=== PATIENT | male | born 1985 | race Caucasian/White ===

== ENCOUNTER 2023-05-06 15:51 | Inpatient (IN) | payer MEDICAID ==
[~2023-05-06] VITALS: Ht 172.7 cm; Wt 112.0 kg
[2023-05-06] MEDS: POTASSIUM CHLORIDE INJ 40 MEQ in DEXT 5%/0.9% NACL 1,000 ML IV SCH ×2 (10:42→20:54)
[2023-05-06] MEDS ORDERED: SODIUM CHLORIDE 0.9% 1,000 ML IV ONE (17:30)
[2023-05-06] MEDS ORDERED: LEVETIRACETAM 500MG PREMIX 100 ML IV ONE (17:45)
[2023-05-06] MEDS ORDERED: LORAZEPAM 2MG/ML CPJ IV ONE (17:45)
[2023-05-06 18:01] LABS: HEMATOCRIT. 44.5 % (42.0-52.0); HEMOGLOBIN. 14.5 g/dL (14.0-18.0); MEAN CORPUSCULAR HGB CONC 32.7 g/dL (31.0-37.0); MEAN CORPUSCULAR VOLUME 94.9 fL (80.0-94.0); MEAN PLATELET VOLUME 9.6 fl (7.4-10.4); PLATELET 167 x1000/uL (130-400); RED BLOOD CELL COUNT 4.69 mill/uL (4.7-6.1); RED CELL DISTRIBUTION WIDTH 14.6 % (11.6-14.6); WHITE BLOOD COUNT 10.3 x1000/uL (4.5-11.0)
[2023-05-06 18:02] LABS: CHLORIDE 96 mEq/L (98-107); DIFFERENTIAL COMMENT 1; INDEX HEMOLYSI 1 (1-3); INDEX ICTERIC 2 (1-4); INDEX LIPEMIC 1 (1-3); SODIUM 134 mEq/L (136-145)
[2023-05-06 18:09] LABS: GLUCOSE 150 mg/dL (70-105)
[2023-05-06 18:10] LABS: ALANINE AMINOTRANSFERASE 492 IU/L (13-61); ALBUMIN 4.5 g/dL (3.4-5.0); ASPARTATE AMINOTRANSFERASE 812 IU/L (15-37); BILIRUBIN TOTAL 2.2 mg/dL (0.1-1.0); CALCIUM 8.7 mg/dL (8.5-10.1); CREATININE 0.9 mg/dL (0.6-1.3); PROTEIN TOTAL 8.4 g/dL (6.0-8.3); UREA NITROGEN BLOOD 11 mg/dL (7-21)
[2023-05-06 18:17] LABS: CARBON DIOXIDE 8 mEq/L (21-32)
[2023-05-06 18:24] LABS: LACTIC ACID 21.3 mmol/L (0.4-2.0)
[2023-05-06] MEDS ORDERED: POTASSIUM CHLORIDE INJ 40 MEQ in DEXT 5% WATER 500 ML IV ONE (18:30)
[2023-05-06] MEDS ORDERED: MAGNESIUM 2 G PREMIX 50 ML IV ONE (18:30)
[2023-05-06 18:57] LABS: PLATELET ESTIMATE NORMAL
[2023-05-06] MEDS ORDERED: DIPHENHYDRAMINE 50MG/ML VIAL IV PRN (23:15)
[2023-05-06] MEDS ORDERED: LEVETIRACETAM 500 MG in SODIUM CHLORIDE 0.9% 100 ML IV SCH (23:15)
[2023-05-06] MEDS ORDERED: ACETAMINOPHEN 325MG TABLET PO PRN ×2 (23:15)
[2023-05-06] MEDS ORDERED: ONDANSETRON HCL 4MG/2ML INJ IV PRN (23:15)
[2023-05-07] VITALS (7 sets, daily range): BP systolic 139–170; BP diastolic 93–117; PULSE 95–112; RESP 16–22; TEMP 97.3–99.7
[2023-05-07] MEDS ORDERED: MVI, ADULT NO.1 10 ML, FOLIC ACID 1 MG, THIAMINE HCL 100 MG in SODIUM CHLORIDE 0.9% 1,0... IV SCH ×4 (01:00)
[2023-05-07] MEDS: POTASSIUM CHLORIDE INJ 40 MEQ in DEXT 5%/0.9% NACL 1,000 ML IV SCH ×2 (02:43→06:56)
[2023-05-07] MEDS: LORAZEPAM 2MG/ML CPJ IV PRN ×2 (04:42→14:31)
[2023-05-07] MEDS: LEVETIRACETAM 500MG PREMIX 100 ML IV SCH ×2 (06:15→17:12)
[2023-05-07 08:07] LABS: BASOPHILS % 0.4 % (0.0-2.0); HEMATOCRIT. 38.2 % (42.0-52.0); HEMOGLOBIN. 12.8 g/dL (14.0-18.0); LYMPHOCYTES % 10.9 % (20.0-50.0); MEAN CORPUSCULAR HEMOGLOBIN 30.8 pg (28.0-32.0); MEAN CORPUSCULAR HGB CONC 33.5 g/dL (31.0-37.0); MEAN PLATELET VOLUME 9.9 fl (7.4-10.4); MONOCYTES % 10.6 % (2.0-8.0); NEUTROPHILS % 78.1 % (40.0-76.0); PLATELET 129 x1000/uL (130-400); RED BLOOD CELL COUNT 4.16 mill/uL (4.7-6.1); RED CELL DISTRIBUTION WIDTH 14.2 % (11.6-14.6); WHITE BLOOD COUNT 8.7 x1000/uL (4.5-11.0)
[2023-05-07 08:11] LABS: INDEX HEMOLYSI 1 (1-3); INDEX ICTERIC 2 (1-4); INDEX LIPEMIC 1 (1-3)
[2023-05-07 08:20] LABS: ALANINE AMINOTRANSFERASE 424 IU/L (13-61); ALBUMIN 3.6 g/dL (3.4-5.0); ASPARTATE AMINOTRANSFERASE 827 IU/L (15-37); BILIRUBIN TOTAL 4.3 mg/dL (0.1-1.0); CALCIUM 8.3 mg/dL (8.5-10.1); CARBON DIOXIDE 23 mEq/L (21-32); CHLORIDE 101 mEq/L (98-107); CREATININE 0.6 mg/dL (0.6-1.3); GLUCOSE 113 mg/dL (70-105); PHOSPHORUS 1.3 mg/dL (2.5-4.9); POTASSIUM 3.3 mEq/L (3.5-5.1); SODIUM 134 mEq/L (136-145); UREA NITROGEN BLOOD 10 mg/dL (7-21)
[2023-05-07] MEDS ORDERED: POTASSIUM CHLORIDE 20MEQ TABLET SR PO NR (11:00)
[2023-05-07] MEDS ORDERED: NALOXONE HCL 0.4MG/ML VIAL IV PRN (12:00)
[2023-05-07] MEDS: HYDROCODONE/ACETAMINOPHEN 10/325MG TABLET PO PRN (12:21)
[2023-05-07] MEDS ORDERED: POTASSIUM PHOS,M-BASIC-D-BASIC 30 MMOL in DEXT 5% WATER 500 ML IV ONE (13:00)
[2023-05-07 13:34] LABS: HEPATITIS B SURFACE ANTIGEN NEGATIVE
[2023-05-07 14:02] LABS: HEPATITIS C VIR.AB 0.14 INDEXVAL (0.00-0.80)
[2023-05-07 14:41] LABS: INDEX HEMOLYSI 2 (1-3)
[2023-05-07 15:00] LABS: CREATINE KINASE 3875 IU/L (39-308)
[2023-05-07] MEDS ORDERED: LORAZEPAM 2MG/ML CPJ IV PRN (18:00)
[2023-05-07] MEDS ORDERED: LORAZEPAM 2MG/ML CPJ IM NR (19:15)
[2023-05-07] MEDS ORDERED: DIPHENHYDRAMINE 50MG/ML VIAL IM NR (19:15)
[2023-05-07] MEDS ORDERED: HALOPERIDOL 5MG TABLET PO NR (19:15)
[2023-05-07] MEDS: HALOPERIDOL LACTATE 5MG/ML VIAL IM NR ×2 (19:28→20:13)
[2023-05-07] MEDS ORDERED: HALOPERIDOL 5MG TABLET PO ONE (19:30)
[2023-05-07] MEDS ORDERED: HALOPERIDOL LACTATE 5MG/ML VIAL IM PRN (20:15)
[2023-05-07] MEDS ORDERED: CHLORDIAZEPOXIDE 25MG CAPSULE PO NR (20:15)
[2023-05-07] MEDS: CHLORDIAZEPOXIDE 25MG CAPSULE PO SCH (20:39)
[2023-05-07] MEDS: FOLIC ACID 1 MG, THIAMINE HCL 100 MG, MVI, ADULT NO.1 10 ML in DEXTROSE 5% WATER 1,000 ML IV NR ×4 (21:03)
[2023-05-08] VITALS: BP 158/74; PULSE 103; RESP 18; TEMP 97.1
[2023-05-08] MEDS: POTASSIUM CHLORIDE INJ 40 MEQ in DEXT 5%/0.9% NACL 1,000 ML IV SCH ×2 (03:14→03:30)
[2023-05-08 04:00] VITALS: BP 145/65; PULSE 115; RESP 20; TEMP 96.8
[2023-05-08] MEDS: LEVETIRACETAM 500MG PREMIX 100 ML IV SCH ×2 (05:29→17:18)
[2023-05-08] MEDS: CHLORDIAZEPOXIDE 25MG CAPSULE PO SCH ×3 (05:30→21:54)
[2023-05-08] MEDS ORDERED: LIDOCAINE HCL 1% 20ML VIAL (Pyxis) INJ ONE (06:33)
[2023-05-08] MEDS ORDERED: POLYMYXIN B SULFATE 500000 UNITS/VIAL ONE (06:33)
[2023-05-08] MEDS ORDERED: BACITRACIN 15GM TUBE TOP ONE (06:33)
[2023-05-08] MEDS ORDERED: VANCOMYCIN HCL 1 GM/VIAL ONE (06:33)
[2023-05-08] MEDS ORDERED: SKIN ADHESIVE 0.7 GM EA TOP ONE (06:33)
[2023-05-08] MEDS ORDERED: BUPIVACAINE HCL/PF 0.5% (5MG/ML) 10ML ONE (06:34)
[2023-05-08] MEDS ORDERED: PROPOFOL 200MG/20ML VIAL IV ONE (07:33)
[2023-05-08] MEDS ORDERED: FENTANYL CITRATE/PF 50MCG/ML 2ML VIAL ONE ×3 (07:33)
[2023-05-08] MEDS ORDERED: MIDAZOLAM HCL 2 MG/2 ML VIAL ONE ×3 (07:50→07:51)
[2023-05-08 08:24] LABS: CHLORIDE 106 mEq/L (98-107); INDEX HEMOLYSI 2 (1-3); INDEX ICTERIC 3 (1-4); INDEX LIPEMIC 1 (1-3); POTASSIUM 4.3 mEq/L (3.5-5.1); SODIUM 134 mEq/L (136-145)
[2023-05-08 08:38] LABS: ALANINE AMINOTRANSFERASE 403 IU/L (13-61); ALBUMIN 3.7 g/dL (3.4-5.0); ASPARTATE AMINOTRANSFERASE 706 IU/L (15-37); BILIRUBIN TOTAL 5.3 mg/dL (0.1-1.0); CALCIUM 9.2 mg/dL (8.5-10.1); CARBON DIOXIDE 16 mEq/L (21-32); CREATININE 0.6 mg/dL (0.6-1.3); GLUCOSE 110 mg/dL (70-105); PROTEIN TOTAL 7.4 g/dL (6.0-8.3); UREA NITROGEN BLOOD 8 mg/dL (7-21)
[2023-05-08 08:58] LABS: PHOSPHORUS 0.9 mg/dL (2.5-4.9)
[2023-05-08] MEDS ORDERED: ONDANSETRON HCL 4MG/2ML INJ IV PRN (09:00)
[2023-05-08] MEDS ORDERED: HYDROMORPHONE HCL/PF 2MG/ML CPJ IV PRN (09:00)
[2023-05-08] MEDS ORDERED: LABETALOL 5MG/ML SYR 20 MG/4 ML SYRINGE IV PRN (09:00)
[2023-05-08] MEDS: THIAMINE HCL 100MG TABLET PO SCH (09:00)
[2023-05-08] MEDS ORDERED: MEPERIDINE HCL/PF 25MG/ML CPJ IV PRN (09:00)
[2023-05-08 09:12] LABS: INDEX HEMOLYSI 1 (1-3)
[2023-05-08 09:13] LABS: AMYLASE 62 IU/L (25-115); ETHANOL BLOOD < 10 mg/dL (-10)
[2023-05-08 12:00] VITALS: BP 131/76; PULSE 86; RESP 20; TEMP 98
[2023-05-08] MEDS ORDERED: POTASSIUM PHOS,M-BASIC-D-BASIC 30 MMOL in DEXT 5% WATER 500 ML IV SCH (12:00)
[2023-05-08] MEDS ORDERED: MAGNESIUM 2 G PREMIX 50 ML IV SCH (12:00)
[2023-05-08 16:00] VITALS: BP_SYST 124; PULSE 116; RESP 22; TEMP 97.6
[2023-05-08] MEDS: FOLIC ACID 1 MG, THIAMINE HCL 100 MG, MVI, ADULT NO.1 10 ML in DEXTROSE 5% WATER 1,000 ML IV NR ×4 (17:32)
[2023-05-08 20:00] VITALS: BP 132/81; PULSE 129; RESP 18; TEMP 97
[2023-05-09] VITALS: BP 128/60; PULSE 89; RESP 18; TEMP 98
[2023-05-09 04:00] VITALS: BP 111/52; PULSE 107; RESP 18; TEMP 98.8
[2023-05-09] MEDS: LEVETIRACETAM 500MG PREMIX 100 ML IV SCH (05:15)
[2023-05-09] MEDS: CHLORDIAZEPOXIDE 25MG CAPSULE PO SCH ×3 (05:42→21:45)
[2023-05-09 06:58] LABS: CALCIUM 8.2 mg/dL (8.5-10.1); INDEX HEMOLYSI 1 (1-3); INDEX ICTERIC 2 (1-4); INDEX LIPEMIC 1 (1-3)
[2023-05-09 07:02] LABS: CARBON DIOXIDE 21 mEq/L (21-32); CHLORIDE 102 mEq/L (98-107); CREATININE 0.6 mg/dL (0.6-1.3); GLUCOSE 105 mg/dL (70-105); PHOSPHORUS 2.1 mg/dL (2.5-4.9); POTASSIUM 3.1 mEq/L (3.5-5.1); SODIUM 129 mEq/L (136-145); UREA NITROGEN BLOOD 9 mg/dL (7-21)
[2023-05-09 08:00] VITALS: BP 108/76; PULSE 104; RESP 18; TEMP 98
[2023-05-09] MEDS: THIAMINE HCL 100MG TABLET PO SCH (10:12)
[2023-05-09] MEDS: HYDROCODONE/ACETAMINOPHEN 10/325MG TABLET PO PRN (10:18)
[2023-05-09] MEDS ORDERED: POTASSIUM CHLORIDE 20MEQ TABLET SR PO SCH (10:30)
[2023-05-09] MEDS ORDERED: POTASSIUM PHOS,M-BASIC-D-BASIC 20 MMOL in DEXT 5% WATER 243.3333 ML IV NR (11:30)
[2023-05-09] MEDS: POTASSIUM CHLORIDE 20MEQ TABLET SR PO SCH ×2 (14:35→17:00)
[2023-05-09 17:44] VITALS: BP 111/80; PULSE 106; RESP 17; TEMP 98.1
[2023-05-09 20:00] VITALS: BP 126/81; PULSE 113; RESP 20; TEMP 99.1
[2023-05-09] MEDS: LEVETIRACETAM 500MG TABLET PO SCH (21:45)
[2023-05-10] VITALS: BP 145/87; PULSE 101; RESP 20; TEMP 98.9
[2023-05-10 04:00] VITALS: BP 112/69; PULSE 104; RESP 20; TEMP 96.4
[2023-05-10 07:04] LABS: HEMATOCRIT. 39.5 % (42.0-52.0); HEMOGLOBIN. 13.4 g/dL (14.0-18.0); MEAN CORPUSCULAR HEMOGLOBIN 31.2 pg (28.0-32.0); MEAN CORPUSCULAR HGB CONC 33.8 g/dL (31.0-37.0); MEAN CORPUSCULAR VOLUME 92.2 fL (80.0-94.0); MEAN PLATELET VOLUME 9.9 fl (7.4-10.4); PLATELET 251 x1000/uL (130-400); RED BLOOD CELL COUNT 4.29 mill/uL (4.7-6.1); RED CELL DISTRIBUTION WIDTH 14.1 % (11.6-14.6); WHITE BLOOD COUNT 10.5 x1000/uL (4.5-11.0)
[2023-05-10 07:09] LABS: DIFFERENTIAL COMMENT 1
[2023-05-10 08:00] VITALS: BP 112/78; PULSE 103; RESP 20; TEMP 98.5
[2023-05-10 08:08] LABS: CHLORIDE 103 mEq/L (98-107); INDEX HEMOLYSI 2 (1-3); INDEX ICTERIC 2 (1-4); INDEX LIPEMIC 1 (1-3); POTASSIUM 4.2 mEq/L (3.5-5.1); SODIUM 133 mEq/L (136-145)
[2023-05-10 08:19] LABS: ALANINE AMINOTRANSFERASE 261 IU/L (13-61); ALBUMIN 3.1 g/dL (3.4-5.0); ASPARTATE AMINOTRANSFERASE 369 IU/L (15-37); CALCIUM 9.1 mg/dL (8.5-10.1); CARBON DIOXIDE 20 mEq/L (21-32); CREATININE 0.7 mg/dL (0.6-1.3); GLUCOSE 109 mg/dL (70-105); UREA NITROGEN BLOOD 12 mg/dL (7-21)
[2023-05-10] MEDS: THIAMINE HCL 100MG TABLET PO SCH (08:30)
[2023-05-10] MEDS: LEVETIRACETAM 500MG TABLET PO SCH (08:30)
[2023-05-10 12:00] VITALS: BP 117/82; PULSE 108; RESP 20; TEMP 98.1
[2023-05-10 13:07] LABS: AMPHETAMINE SCREEN Negative ng/mL (Cutoff:50); BARBITURATE SCREEN Negative ug/mL (Cutoff:0.1); CANNABINOID SCREEN Negative ng/mL (Cutoff:5); OPIATES SCREEN Negative ng/mL (Cutoff:5); OXYCODONE SCREEN Negative ng/mL (Cutoff:5); PHENCYCLIDINE SCREEN Negative ng/mL (Cutoff:8)
[2023-05-10 14:46] VITALS: BP 20/117; PULSE 98; TEMP 98.1; O2SAT 82
[2023-05-10] MEDS: CHLORDIAZEPOXIDE 25MG CAPSULE PO SCH (14:55)
[2023-05-10 18:15] LABS: PLATELET ESTIMATE NORMAL
== END 2023-05-10 15:00 | disposition home or self-care (01) | DRG 315 ==
LOC: ER 15:51 → 8WST 20:47 → EDBEDREQTM 20:51 → EDBEDREQ 20:51 → ENRESERV 22:28 → CANRESERV 23:08 → 6EST 05-09 15:22
PROVIDERS: ADMIT Internal Medicine; ATTEND Internal Medicine
PROC: 0PSD34Z Reposition Left Humeral Head with Internal Fixation Device, Percutaneous Approach (ICD-10-PCS; 2023-05-09)
PROC: 4A10X4Z Monitoring of Central Nervous Electrical Activity, External Approach (ICD-10-PCS; principal; 2023-05-10)
DX: S42.292A Other displaced fracture of upper end of left humerus, initial encounter for closed fracture (principal); G93.41 Metabolic encephalopathy; F10.231 Alcohol dependence with withdrawal delirium; E87.20 Acidosis, unspecified; M62.82 Rhabdomyolysis; E83.39 Other disorders of phosphorus metabolism; F05 Delirium due to known physiological condition; G40.409 Other generalized epilepsy and epileptic syndromes, not intractable, without status epilepticus; S43.025A Posterior dislocation of left humerus, initial encounter; R74.01 Elevation of levels of liver transaminase levels; Z20.822 Contact with and (suspected) exposure to COVID-19; E87.6 Hypokalemia; S01.512A Laceration without foreign body of oral cavity, initial encounter; E83.42 Hypomagnesemia; W19.XXXA Unspecified fall, initial encounter; F90.9 Attention-deficit hyperactivity disorder, unspecified type; I10 Essential (primary) hypertension; Z79.899 Other long term (current) drug therapy
CPT/HCPCS: 36415; 73030; 73080; 76000; 76705; 80048; 80053; 80307; 80320; 82150; 82550; 83605; 83735; 84100; 85025; 86803; 87340; 87426; 93005; 95816; 97162; 99285; A4565; C1893; J1200; J1630; J1953; J2060; J2250; J2704; J3010; J3370; J3411; J3475; J3480; J3490; J7030; J7042; J7060; J7070; J7120; G0480